=== PATIENT | male | born 1960 | race Caucasian/White ===

== ENCOUNTER 2018-11-14 17:00 | Inpatient (IN) | payer OTHER ==
[2018-11-14] MEDS ORDERED: Aspirin 325 mg EC Tablets PO STA (17:48)
--- NOTE | 2018-11-14 17:48 | C.PDOC ---
History Of Present Illness 58 y/o male with a PMHx of DM Type II and HTN presents to the ED for worsening chest pain since yesterday. Patient states 1-2 times per week he usually has minor non-exertional chest pain, which lasts a few minutes and resolves on its own. Yesterday afternoon patient developed more severe and more prolonged than usual left-sided chest pain, which lasted several hours. He took 81mg ASA around 3:00am and the pain resolved. Patient awoke today feeling fine. Pain recurred again, somewhat less intense but still stronger than usual, around noon and he took ASA 81mg again. Patient then went to PMD, who sent patient to the ED. Just prior to arrival patient had a brief episode of chest pain during exertion. On arrival he is asymptomatic. PMD referral paper states that patient is noncompliant with pressure meds, takes it "once in a while." Per note from PMD, patient is to be admitted with consult Dr. Hairston. Time Seen by Provider: 11/14/18 17:48 Chief Complaint (Nursing): Chest Pain History Per: Patient History/Exam Limitations: no limitations Onset/Duration Of Symptoms: Intermittent Episodes, Worse Since (yesterday) Current Symptoms Are (Timing): Gone Past Medical History Reviewed: Historical Data, Nursing Documentation, Vital Signs Vital Signs: Last Vital Signs Temp 98.7 F 11/14/18 17:10 Pulse 74 11/14/18 17:10 Resp 20 11/14/18 17:10 BP 132/82 11/14/18 17:10 Pulse Ox 97 11/14/18 17:10 - Medical History PMH: Diabetes, HTN Family History: States: Unknown Family Hx - Social History Hx Tobacco Use: Yes Hx Alcohol Use: No Hx Substance Use: No - Immunization History Hx Tetanus Toxoid Vaccination: No Hx Influenza Vaccination: No Hx Pneumococcal Vaccination: No Review Of Systems Except As Marked, All Systems Reviewed And Found Negative. Constitutional: Negative for: Fever, Sweats Eyes: Negative for: Vision Change Cardiovascular: Positive for: Chest Pain. Negative for: Palpitations Respiratory: Negative for: Shortness of Breath, SOB with Excertion Gastrointestinal: Negative for: Nausea, Vomiting Musculoskeletal: Negative for: Back Pain Skin: Negative for: Rash Neurological: Negative for: Weakness, Numbness, Headache, Dizziness Physical Exam - Physical Exam Appears: Non-toxic, No Acute Distress Skin: Warm, Dry, No Diaphoretic Head: Atraumatic, Normacephalic Eye(s): bilateral: Normal Inspection, PERRL, EOMI Oral Mucosa: Moist Neck: Normal ROM Chest: Symmetrical, No Tenderness, No Ecchymosis Cardiovascular: Rhythm Regular, No Murmur Respiratory: Normal Breath Sounds, No Rales, No Rhonchi, No Wheezing, Other (NARD) Gastrointestinal/Abdominal: Soft, No Tenderness, No Distention Back: No Vertebral Tenderness Extremity: Bilateral: Atraumatic, No Pedal Edema, Normal ROM Pulses: Left Dorsalis Pedis: Normal, Right Dorsalis Pedis: Normal Neurological/Psych: Oriented x3, Normal Cognition, Normal Cranial Nerves, Other (No focal deficits, speaking in full sentences) Gait: Steady ED Course And Treatment - Laboratory Results Result Diagrams: 11/14/18 18:22 ECG: Interpreted By Me ECG Rhythm: Sinus Rhythm Interpretation Of ECG: TWI III, AVF Rate From EC O2 Sat by Pulse Oximetry: 97 (RA) Pulse Ox Interpretation: Normal - Radiology CXR: Interpreted by Me, Viewed By Me CXR Interpretation: Yes: No Acute Disease Medical Decision Making Medical Decision Making: Initial Plan: - Labs w/ cardiac enzymes - EKG - Chest x-ray - 325 mg PO Aspirin - 85 mg SC Lovenox - NTG 2% applied topically - Reassess after meds Disposition Discussed With : Diaz Levy Doctor Will See Patient In The: Hospital Counseled Patient/Family Regarding: Studies Performed, Diagnosis - Disposition Disposition: HOSPITALIZED Disposition Time: 17:59 Condition: STABLE - POA Present On Arrival: None - Clinical Impression Clinical Impression: Unstable angina - Scribe Statement The provider has reviewed the documentation as recorded by the Eliezer Mack Provider Attestation: All medical record entries made by the Eliezer were at my direction and personally dictated by me. I have reviewed the chart and agree that the record accurately reflects my personal performance of the history, physical exam, medical decision making, and the department course for this patient. I have also personally directed, reviewed, and agree with the discharge instructions and disposition.
[2018-11-14] MEDS ORDERED: Nitroglycerin 2% Ointment Foilpak UD TOP STA (17:53)
[2018-11-14] MEDS ORDERED: Enoxaparin 40 mg Syringe SC STA (18:00)
[2018-11-14] MEDS ORDERED: Enoxaparin 100 mg Syringe ONE (18:14)
[2018-11-14 18:28] LABS: BASO % 0.3 % (0.0-2.0); EOS # 0.2 K/uL (0.0-0.7); EOS % 2.4 % (0.0-4.0); HEMOGLOBIN 16.7 g/dL (12.0-18.0); LYMPH # 1.4 K/uL (1.0-4.3); MEAN CELL VOLUME 90.7 fL (80.0-94.0); MEAN CORPUSCULAR HEMOGLOBIN 29.9 pg (27.0-31.0); MEAN CORPUSCULAR HGB CONC 32.9 g/dL (33.0-37.0); MEAN PLATELET VOLUME 10.1 fL (7.2-11.7); MONO # 0.6 K/uL (0.0-0.8); MONO % 8.2 % (0.0-10.0); NEUT # 5.5 K/uL (1.8-7.0); NEUT % 71.1 % (50.0-75.0); NRBC % 0.1 % (0.0-2.0); RBC 5.58 Mil/uL (4.40-5.90); RED CELL DISTRIBUTION WIDTH 12.9 % (11.5-14.5); WHITE BLOOD COUNT 7.8 K/uL (4.8-10.8)
[2018-11-14 18:51] LABS: ALB/GLOB RATIO 1.7 (1.0-2.1); ALBUMIN 4.6 g/dL (3.5-5.0); ALT/SGPT 33 U/L (21-72); AST/SGOT 48 U/L (17-59); BLOOD UREA NITROGEN 15 mg/dL (9-20); GFR NON-AFRICAN AMERICAN > 60
[2018-11-14 20:42] LABS: PROTHROMBIN TIME 11.4 SECONDS (9.7-12.2)
[2018-11-14 21:58] VITALS: RESP 20
[2018-11-14] MEDS ORDERED: (Novolog) Insulin Aspart, Recombinant 100 u/ml 10 ml vial SC SCH (22:00)
[2018-11-15 01:53] LABS: CK-MB 5.61 ng/mL (0.0-3.38); TROPONIN I 0.671 ng/mL (0.00-0.120)
[2018-11-15] MEDS ORDERED: Sodium Chloride 0.9% 1,000 ML IV SCH ×2 (04:30→10:04)
[2018-11-15] MEDS ORDERED: Lidocaine 2% MPF (5 ml) Inj ONE (07:07)
[2018-11-15] MEDS ORDERED: Iodixanol 320 MG/ML 200 ML BOTTLE IV ONE (07:08)
[2018-11-15] MEDS ORDERED: Midazolam 2 MG/2 ML VIAL ONE (07:08)
[2018-11-15 07:48] VITALS: BP 120/74; PULSE 68; TEMP 98.1; O2SAT 95
[2018-11-15] MEDS ORDERED: Heparin25000 units/250ml 1/2NS 25,000 UNITS/250 ML BAG IV ONE (07:54)
[2018-11-15] MEDS ORDERED: Heparin25000 units/250ml 1/2NS 25,000 UNITS/250 ML BAG IV PRN (08:10)
[2018-11-15] MEDS ORDERED: Nitroglycerin 50mg in D5W 0 MG/0 ML BOTTLE IV ONE (08:11)
--- NOTE | 2018-11-15 08:20 | RAD ---
HISTORY: chest pain COMPARISON: None available TECHNIQUE: Chest, one view. FINDINGS: LUNGS: No focal consolidation. Please note that chest x-ray has limited sensitivity for the detection of pulmonary masses. PLEURA: No significant pleural effusion identified. No definite pneumothorax . CARDIOVASCULAR: Heart size appears top normal. Atherosclerotic calcifications present. OSSEOUS STRUCTURES: Degenerative changes. VISUALIZED UPPER ABDOMEN: Unremarkable. OTHER FINDINGS: None. IMPRESSION: No focal consolidation.
--- NOTE | 2018-11-15 16:13 | CARDCATH ---
PROCEDURE DATE: 11/15/2018 PROCEDURES: 1. Left heart catheterization. 2. Coronary angiogram. 3. Intraaortic balloon pump insertion. REFERRING PHYSICIAN: Diaz Levy MD PERFORMING PHYSICIAN: Miky Hairston MD CLINICAL INDICATIONS: 1. Chest pain. 2. Non ST elevation myocardial infraction. 3. Coronary artery disease. 4. Diabetes. 5. Hyperlipidemia. 6. Hypertension. BRIEF CLINICAL HISTORY: Angela Gotti is a 58-year-old gentleman with history of diabetes, hypertension, hyperlipidemia, presented to [facility] with unstable angina symptoms. The patient was anticoagulated, admitted to telemetry floor. The patient continued to have the chest pain. This morning the patient was brought to cardiac cath lab nurse for coronary disease assessment. DESCRIPTION OF PROCEDURE: After informed consent, the patient was prepped and draped in the usual sterile fashion. 2% Lidocaine was given in the right groin for local anesthesia. Using micropuncture technique, 6-Burmese sheath was introduced into the right common femoral artery. A JL4 6 Burmese diagnostic catheter engaged into left coronary artery. Contrast was injected and left coronary angiogram was done. Then the catheter was exchanged to JR4 6-Burmese diagnostic catheter. The catheter engaged into the right coronary artery. Contrast was injected and right coronary angiogram was done. Then, the pigtail catheter was inserted into left ventricle across the aortic valve. LVEDP was measured. Contrast was injected and LV angiogram was done. When the catheter was pulled back, gradient across the aortic valve was measured. The patient tolerated the procedure well. Since the patient does have severe triple vessel disease and ongoing chest pain, intraaortic balloon pump inserted. Radiological supervision and radiological interpretation of the coronary imaging was done. FINDINGS: 1. Left main coronary artery is patent. 2. Proximal LAD is patent, mid LAD has 99% stenosis, distal LAD has 90% stenosis. Diagonals have diffuse disease. 3. Proximal left circumflex is patent. OM1 has 95% proximal stenosis. OM2 has 99% proximal stenosis. 4. Right coronary artery is dominant system. Proximal right coronary artery has 90% stenosis. Mid right coronary artery has 100% occlusion. The patient has left and right collaterals. 6. LV ejection fraction is approximately 50%. Mild global hypokinesis. EDP is 22. No gradient across the aortic valve. IMPRESSION: 1. Severe triple vessel disease as described above. 2. Left ventricular ejection fraction is 50%. 3. Due to ongoing ischemia, the patient is placed on intraaortic balloon pump. On intravenous Heparin. PLAN: The patient will be transferred to [facility] for coronary artery bypass surgery. Miky Hairston MD
--- NOTE | 2018-11-15 17:44 | CARD ---
APPROVED REPORT Date of service: 11/14/2018 EKG Measurement Heart [id number] <Conclusion> Normal sinus rhythm Right atrial enlargement Inferior infarct, age undetermined Abnormal ECG
--- NOTE | 2018-11-16 14:30 | CARD ---
APPROVED REPORT Date of service: 11/15/2018 EXAM: Two-dimensional and M-mode echocardiogram with Doppler and color Doppler. Other Information Quality : TDSRhythm : INDICATION Chest Pain RISK FACTORS Hypertension Diabetes 2D DIMENSIONS IVC0.00 cm M-Mode DIMENSIONS Left Atrium (MM)3.73 (2.5-4.0cm)IVSd0.97 (0.7-1.1cm) Aortic Root3.42 (2.2-3.7cm)LVDd5.42 (4.0-5.6cm) Aortic Cusp Exc.2.08 (1.5-2.0cm)PWd0.81 (0.7-1.1cm) FS (%) 45 %LVDs2.97 (2.0-3.8cm) LVEF (%)76 (>50%) Mitral Valve MV E Eubouxhb12.8cm/sMV A Wqzpmxns18.7cm/sE/A ratio1.1 TDI Lateral E' Peak V8.16cm/sMedial E' Peak V5.77cm/sE/Lateral E'7.1 E/Medial E'10.0 <Conclusion> tds, poor window. normal size la,lv & ra rv. normal lv wall motion,thickness,systolic & diastolic function with lvef of 60-65%. grossly normal looking aortic,mitral,tv & pv. normal doppler. normal size aortic root. no pericardial effusion.
== END 2018-11-15 15:17 | disposition short-term general hospital (02) | DRG 111 ==
LOC: C.ER 17:00 → C.9E 18:01 → C.6T 18:16 → C.9E 18:25 → C.6T 19:43 → C.9S 11-15 08:58 → C.6T 11-15 10:52
PROVIDERS: ADMIT Internal Medicine Pulmonary Disease; ATTEND Internal Medicine Pulmonary Disease
PROC: 5A02210 Assistance with Cardiac Output using Balloon Pump, Continuous (ICD-10-PCS; principal; 2018-11-15)
PROC: 4A023N7 Measurement of Cardiac Sampling and Pressure, Left Heart, Percutaneous Approach (ICD-10-PCS; 2018-11-15)
PROC: B2151ZZ Fluoroscopy of Left Heart using Low Osmolar Contrast (ICD-10-PCS; 2018-11-15)
PROC: B2111ZZ Fluoroscopy of Multiple Coronary Arteries using Low Osmolar Contrast (ICD-10-PCS; 2018-11-15)
DX: I25.110 Atherosclerotic heart disease of native coronary artery with unstable angina pectoris (principal); I25.82 Chronic total occlusion of coronary artery; I10 Essential (primary) hypertension; E11.9 Type 2 diabetes mellitus without complications; E78.5 Hyperlipidemia, unspecified; F17.210 Nicotine dependence, cigarettes, uncomplicated; Z91.19 Patient's noncompliance with other medical treatment and regimen